=== PATIENT | female | born 1990 ===

== ENCOUNTER 2017-03-06 06:54 | Inpatient (IN) | payer OTHER ==
[2017-03-06 07:35] VITALS: BMI 37.5
[2017-03-06] MEDS ORDERED: IV START KIT ONE (07:43)
[2017-03-06] MEDS ORDERED: SODIUM CHLORIDE 0.9% FLUSH 10 ML ONE (07:44)
[2017-03-06] MEDS ORDERED: LIDOCAINE Viscous 2% 15 ML UDCUP ONE (07:44)
[2017-03-06] MEDS ORDERED: LIDOCAINE 1% (PRES FREE) 30 ML VIAL ONE (07:44)
[2017-03-06] MEDS ORDERED: MINERAL OIL 25 ML BOT ONE (07:44)
[2017-03-06] MEDS ORDERED: OXYTOCIN 10 UNITS/ML VIAL ONE (07:44)
[2017-03-06] MEDS ORDERED: PUMP TUBING ONE (07:44)
[2017-03-06] MEDS ORDERED: OXYTOCIN IN NS 500 ML IV ONE (07:45)
--- NOTE | 2017-03-06 08:46 | PCMAN ---
OB Admission Note - History : 2 Term: 1 : 0 Abortions (S&E): 0 Livin Gestational Age (weeks): 39 Days (#/7): 4 Admit Cervical Dilation:: 1 Admit Cervical Effacement (%):: 30 Admit Station:: -3 Admit Presentaton:: vertex Membrane Status: Intact Contractions: No Heart Rate:: 140 (cat 1) Status:: reassuring EFW:: 7 lbs Summary of Course:: uncomplicated course. Wanted IOL at 39 weeks secondary to maternal discomfort. 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 l - Labs Blood Type: O (+) positive Hct/Hgb:: Rubella Status: Immune GBS Status: Negative Abnormal Labs: None - Physical Exam General: Afebrile Psych/Mental Status: Mood/Affect Appropriate Neurological: Alert Lungs: Clear to Auscultation Bilaterally Cardiovascular: Regular Rate and Rhythm Abdomen: Normal Bowel Sounds Genitourinary: Normal Female Genitalia Rectal Exam: Deferred Extremities: Other (nt, no edema) Skin: Normal Color - Problems (1) Term Status: Acute Code: Z34.80Assessment/Plan: desires IOL for maternal discomfort Placed Cook Catheter will start Pitocin once this is out FWB reassuring, cat I FHT
[2017-03-06 09:02] LABS: HEMATOCRIT 30.8 % (37.0-47.0); HEMOGLOBIN 9.6 gm/l (12.0-16.0); MEAN CELL VOLUME 86.5 fl (81.0-99.0); MEAN CORPUSCULAR HGB CONC 31.2 g/dl (33.0-37.0); RED CELL DISTRIBUTION WIDTH 13.2 % (11.5-14.5)
[2017-03-06] MEDS ORDERED: OXYTOCIN IN NS 500 ML IV PRN (13:07)
--- NOTE | 2017-03-06 13:10 | PDOC36 ---
Provider Note Subject: feeling some UC's.getting more uncomfortable. Note: vss af FHT'S:140 mod stv/ltv and accels, no decels [place]: small UC's noted SVE: /-3 A/P: IUP at 39 weeks IOL cook removed start Pitocin. FWB overall reassuring, cat 1.
[2017-03-06] MEDS: LACTATED RINGERS 1,000 ML IV SCH ×3 (14:03→23:25)
--- NOTE | 2017-03-06 17:33 | PDOC36 ---
Provider Note Subject: Doing well. Feeling some uc's, not that painful. Note: vss af FHT's: 140's mod STCV/LTV, pos accels no decels toco: q 2-3 min. SVE: 4-5/70/-2, s/p AROM clear fluid A/P: IUP at 39 weeks, early labor s/p AROM clear, cont. pitocin FWB overall reassuring cat 1
[2017-03-06] MEDS ORDERED: ONDANSETRON 4 MG/2ML 2 ML VIAL IV PRN (20:26)
[2017-03-06] MEDS ORDERED: EPIDURAL PUMP SET ONE (22:57)
[2017-03-06] MEDS ORDERED: FENTANYL/ROPIVACAINE EPIDURAL 0 ML EP ONE (22:57)
[2017-03-06] MEDS ORDERED: EPIDURAL PROCEDURE TRAY ONE (23:40)
[2017-03-07] MEDS ORDERED: LIDOCAINE 1% (PRES FREE) 30 ML VIAL IF ONE (00:10)
[2017-03-07] MEDS ORDERED: DOCUSATE SODIUM 100 MG CAPSULE PO PRN (00:22)
[2017-03-07] MEDS ORDERED: BENZOCAINE/MENTHOL 60 APPLIC/BOT TP PRN (00:22)
[2017-03-07] MEDS ORDERED: HYDROCODONE/ACETAMINOPHEN 5/325MG TABLET PO PRN (00:22)
[2017-03-07] MEDS ORDERED: OXYTOCIN IN NS 167 ML IV PRN (00:22)
[2017-03-07] MEDS ORDERED: LANOLIN 50 APPLIC/7G TUBE TP PRN (00:22)
[2017-03-07] MEDS ORDERED: LACTATED RINGERS 1,000 ML IV PRN (00:22)
--- NOTE | 2017-03-07 00:26 | PCMDEL ---
Delivery Note - Labor 1st stage (hr/min):: 3 hours 24 min 2nd stage (hr/min):: 10 min 3rd stage (hr/min):: 3 min Total (hr/min):: 3 hours 37 min Pushed (hr/min):: 10 min - Delivery Delivery (Date): 03/07/17 Delivery (Time): 00:04 Gender: Female Presentation: Cephalic Umbilical Cord: 3 Vessel Delayed Cord Clamping:: < 1-2 min 1 Minute Total: 9 5 Minute Total: 9 Placenta:: normal EBL:: 150 ml Perineum:: 2nd degree laceration of perineum Suture:: 3.0 vicryl used, with 1 % lidocaine. Anesthesia/Meds:: as above Length ROM:: 3 hours 58 min Comments:: vigorous female, no complications
[2017-03-07] MEDS: IBUPROFEN 800 MG TABLET PO PRN ×3 (04:20→19:43)
[2017-03-08] MEDS: IBUPROFEN 800 MG TABLET PO PRN (03:29)
[2017-03-08 06:29] LABS: HEMATOCRIT 29.8 % (37.0-47.0); HEMOGLOBIN 9.2 gm/l (12.0-16.0)
[2017-03-08 07:17] VITALS: BP 112/76
--- NOTE | 2017-03-08 09:32 | PDOC39B ---
Hospital Course: ADMIT DATE: 03/06/17 DISCHARGE DATE: 03/08/17 ADMISSION DIAGNOSES: Term 4.5 cm Dermoid cyst of left ovary PROCEDURES/EVENTS: HOSPITAL COURSE: 26 year old at 39 weeks gestation who presented at 39 weeks gestation for induction of labor for maternal discomfort. A cook catheter was placed and removed 7 hours later. Pitocin was started and then the patient was AROMd of clear fluid and she delivered a viable female on 03/07/17 at 00:29 via without complication, Apgars were 9/9. There was a 2nd degree perineal laceration which was repaired. EBL was 150 mL. By the day of discharge the patient was ambulating, eating, voiding, and passing flatus without difficulty. Pain controlled and lochia appropriate. She is . She will be using for control. Pediatric provider is Laxmi. - Physical Exam Vital Signs: Temp Pulse Resp BP Pulse Ox 97.9 F 56 16 112/76 03/08/17 07:13 03/08/17 07:13 03/08/17 07:13 03/08/17 07:13 General: Afebrile Psych/Mental Status: Mood/Affect Appropriate Neurological: Oriented x 4 Lungs: Clear to Auscultation Bilaterally Cardiovascular: Regular Rate and Rhythm Fundus: Firm, Below Umbilicus Abdomen: Normal Bowel Sounds - Discharge Diagnosis (1) Spontaneous vaginal delivery Status: AcuteAssessment/Plan: Doing well Normal exam OK to DC home - Discharge Plan Condition: Stable Disposition: Home Prescriptions: Docusate Sodium [COLACE 100 MG CAPSULE (SHF)] 100 mg PO DAILY PRN #60 PRN Reason: Comfort Ibuprofen [IBUPROFEN 800 MG TABLET (SHF)] 800 mg PO Q6H PRN #60 PRN Reason: Pain (Mild) FERROUS SULFATE (65 Fe) [IRON FERROUS SULFATE 325 MG TABLET (SHF)] 325 mg PO BID #60 Hydrocodone Bit/Acetaminophen [NORCO 5/325 MG TABLET (SHF)] 1 - 2 tab PO Q4H PRN #20 PRN Reason: Pain (Moderate) Vit/Fe Fumarate/FA [ PLUS TABLET *SHF] 1 tab PO BEDTIME #30 Follow-Up: Alexandra Donahue MD [Staff Physician] - In 6 weeks
[2017-03-08] MEDS ORDERED: LACTATED RINGERS 1,000 ML ONE (12:46)
[2017-03-08] MEDS ORDERED: FERROUS SULFATE (65 Fe) 325 MG TABLET PO SCH (21:00)
== END 2017-03-08 11:35 | disposition home or self-care (01) | DRG 775 ==
LOC: FBC 06:54 → EDSTATUS 03-09 06:52
PROVIDERS: ADMIT Family Medicine; ATTEND Family Medicine
PROC: 3E033VJ Introduction of Other Hormone into Peripheral Vein, Percutaneous Approach (ICD-10-PCS; 2017-03-06)
PROC: 10907ZC Drainage of Amniotic Fluid, Therapeutic from Products of Conception, Via Natural or Artificial Opening (ICD-10-PCS; 2017-03-06)
PROC: 10E0XZZ Delivery of Products of Conception, External Approach (ICD-10-PCS; principal; 2017-03-07)
PROC: 0KQM0ZZ Repair Perineum Muscle, Open Approach (ICD-10-PCS; 2017-03-07)
DX: O70.1 Second degree perineal laceration during delivery (principal); Z37.0 Single live birth; O34.83 Maternal care for other abnormalities of pelvic organs, third trimester; Z3A.39 39 weeks gestation of pregnancy